=== PATIENT | male | born 1945 | race Caucasian/White ===

== ENCOUNTER 2017-10-10 06:24 | Day surgery (SDC) | payer OTHER ==
[~2017-10-10] VITALS: Ht 177.8 cm; Wt 104.3 kg
[~2017-10-10 06:24] MED LIST: ASPIR 8181 MG PO; CLOPIDOGREL75 MG PO; GABAPENTIN100 MG PO; LANTUS100 UNITS/ SUB-Q; LIPITOR40 MG PO; LISINOPRIL20 MG PO; METFORMIN HCL1000 M1 PO; METOPROLOL SUCC50 MG PO; NORVASC10 MG PO
--- NOTE | 2017-10-10 08:09 | NUR ---
10/10/17 0809 Yanira Ledesma 0802-PATIENT ARRIVED TO PACU ON 3L NC O2 SAT 95% PATIENT REACTIVE SLEEPING. RR EVEN. ABDOMEN ROUND AND SOFT. 0807-GLUCOSE [id number]
--- NOTE | 2017-10-10 08:47 | OR ---
[facility] [address], [place] [address] Signed DATE OF OPERATION: 10/10/2017 SURGEON: Ruddy Bullard MD PREOPERATIVE DIAGNOSES: 1. Personal history of multiple colonic polyps. 2. Hemorrhoids. POSTOPERATIVE DIAGNOSES: 1. A 5 mm polyps at 70 and 38 cm. 2. Moderate left-sided diverticulosis. 3. Enlarged prostate, right greater than left. PROCEDURE: Colonoscopy with hot biopsy. ESTIMATED BLOOD LOSS: None. INDICATIONS: Jose is a 72-year-old gentleman who has had three previous colonoscopies. He has had colonic polyps removed each time. His last colonoscopy was around 2011 while living in [place]. He was told to follow up every 5 years. He tells me he also has hemorrhoids. He gives no family history of colon cancer or polyps. He had a cardiac stent placed in September 2016 and is now off the Plavix and on aspirin. Consequently, he presents for his colonoscopy. In the office, I gave him a booklet on colonoscopy and we looked at that together along with the risks including, but not limited to gas bloating, crampy abdominal pain, bleeding, perforation, requiring surgery, and missed diagnosis. We also discussed the need for IV conscious sedation. He had expressed understanding and wished to proceed. PROCEDURE NOTE: Jose was taken into our endoscopy suite and placed in the left lateral decubitus position. He was given IV sedation with 5 mg of Versed and 150 mcg of fentanyl. A digital rectal exam was performed and he does have an enlarged prostate. The right is significantly more prominent than the left. He should probably review that with his primary care provider. The adult colonoscope was then introduced and advanced under direct visualization of the camera. He did have one area in the sigmoid colon that took me just a few minutes to get around the curve, then up into the cecum itself. It took a little bit extra sedation, a little abdominal compression in order to advance the scope. Electronically Signed By: RUDDY BULLARD MD 10/10/17 0847 PATIENT NAME: JOSE GROSS OPERATIVE REPORT DATE OF : 43 REPORT #: [id number] PHYSICIAN: RUDDY BULLARD MD PCP: JERAMIE CRAWFORD REPORT IS CONFIDENTIAL AND NOT TO BE RELEASED WITHOUT AUTHORIZATION [facility] [address] [place] [id number] Signed His prep was good. The scope was slowly withdrawn. We had taken pictures throughout for photodocumentation. The above two polyps were easily removed with a hot biopsy forceps. He also has moderate left-sided diverticulosis. They are moderate in size, moderate in number, and scattered about. The rectum itself was unremarkable. Upon retroflexion of the scope, there was no additional pathology noted above the anal canal. After this, the gas was suctioned out and the colonoscope removed. Jose tolerated the procedure quite well. RECOMMENDATIONS: I will see Jose back in my office in 7 to 14 days to review his pathology results. He should review his prostate exam with his primary care provider. Ruddy Bullard MD ALB/PARVEZL /[id number] cc: SHELBIE Valencia MD Copies: JERAMIE CRAWFORD ANDREW L MD ~ Electronically Signed By: RUDDY BULLARD MD 10/10/17 0847 PATIENT NAME: JOSE GROSS OPERATIVE REPORT DATE OF : 43 REPORT #: [id number] PHYSICIAN: RUDDY BULLARD MD PCP: JERAMIE CRAWFORD REPORT IS CONFIDENTIAL AND NOT TO BE RELEASED WITHOUT AUTHORIZATION
--- NOTE | 2017-10-10 09:36 | NUR ---
LE 0915: PT IS BACK TO DS FROM PACU. SHE IS REQUESTING ICE WATER. SHE REPORTS 8/10 PAIN. MOM IS AT THE BEDSIDE. NO OTHER C/O'S AT THIS TIME. WILL REASSESS WITHIN THE HOUR. LE 0925: PT IS REQUESTING CHANELLE RENTERIA.
--- NOTE | 2017-10-10 09:46 | NUR ---
RUBI 0915: PT IS BACK TO ROOM 8 FROM PACU. HE IS HERE UNTIL HE WAKES UP A LITTLE BIT MORE. HE HAS ALREADY HAD ALL DC INSTRUCTIONS GIVEN, JUST NEEDS TO GET DRESSED AND TAKEN OUT TO RIDE.
== END 2017-10-10 10:02 | disposition home or self-care (01) ==
LOC: OPS 06:24 → DS 06:24 → OPS 06:45 → DS 06:45 → OPS 10:02
PROVIDERS: Colon & Rectal Surgery
PROC: 0DBE8ZZ Excision of Large Intestine, Via Natural or Artificial Opening Endoscopic (ICD-10-PCS; principal; 2017-10-10 06:45)
DX: Z12.11 Encounter for screening for malignant neoplasm of colon (principal); K63.5 Polyp of colon; K57.30 Diverticulosis of large intestine without perforation or abscess without bleeding; N40.0 Benign prostatic hyperplasia without lower urinary tract symptoms; F17.290 Nicotine dependence, other tobacco product, uncomplicated; Z83.71 Family history of colonic polyps; Z79.82 Long term (current) use of aspirin; Z95.5 Presence of coronary angioplasty implant and graft; Z79.4 Long term (current) use of insulin; Z79.899 Other long term (current) drug therapy; Z88.5 Allergy status to narcotic agent; Z86.010 Personal history of colon polyps; Z88.8 Allergy status to other drugs, medicaments and biological substances
CPT/HCPCS: 88305; 99153; G0500; J2250; J3010; J7120

== ENCOUNTER 2019-04-11 06:22 | Emergency (ER) | payer BC, MEDICARE ==
[~2019-04-11] VITALS: Ht 177.8 cm; Wt 104.3 kg
--- OUTSIDE RECORDS SUMMARY | ~2019-04-11 | XMS | Clinical Summary ---
Demographics + + + | Address | [address] | | | [place] [address] | + + + | Home Phone | | + + + | Preferred Language | Unknown | + + + | Marital Status | Single | + + + | Taoist Affiliation | 1028 | + + + | Race | Unknown | + + + | Ethnic Group | Unknown | + + + Author + + + | Author | [facility] | | | and [facility] | + + + | Organization | [facility] | | | and [facility] | + + + | Address | Unknown | + + + | Phone | Unavailable | + + + Support + + +---------+ + | Name | Relationship | Address | Phone | + + +---------+ + | Nathanael Mccarthy | ECON | Unknown | | + + +---------+ + | Prema Mccarthy | ECON | Unknown | | + + +---------+ + Care Team Providers + +------+ + | Care Compressor Station Engineer Name | Role | Phone | + +------+ + | Sweta Forde | PCP | | + +------+ + Allergies Not on File Medications Not on file Active Problems + + + | Problem | Noted Date | + + + | Shortness of breath | 09/01/2017 | + + + Social History + +-------+ +--------+------+ | Tobacco Use | Types | Packs/Day | Years | Date | | | | | Used | | + +-------+ +--------+------+ | Never Assessed | | | | | + +-------+ +--------+------+ + + + | Sex Assigned at | Date Recorded | | | | + + + | Not on file | | + + + + + + + | Job Start Date | Occupation | Industry | + + + + | Not on file | Not on file | Not on file | + + + + + + + + | Travel History | Travel Start | Travel End | + + + + + + | No recent travel history available. | + + Last Filed Vital Signs Not on file Plan of Treatment + + + + + | Health Maintenance | Due Date | Last Done | Comments | + + + + + | Vaccine: | | | | | Dtap/Tdap/Td (1 - | 3 | | | | Tdap) | | | | + + + + + | Vaccine: Zoster (2 | | 09/03/2009 | | | of 3) | 0 | | | + + + + + | Vaccine: | | 08/03/2012 | | | Pneumococcal 65+ | 4 | | | | Low/Medium Risk (2 | | | | | of 2 - PCV13) | | | | + + + + + | Vaccine: Influenza | | 07/25/2013, 08/03/2012 | | | (#1) | 9 | | | + + + + + Results Not on filefrom Last 3 Months Insurance + +--------+ +--------+-------+---------+--------+ | Payer | Benefi | Subscriber | Effect | Phone | Address | Type | | | t Plan | ID | justice | | | | | | / | | Dates | | | | | | Group | | | | | | + +--------+ +--------+-------+---------+--------+ | [employer] [place] | [id number] | | | | Indemn | | | CHOICE | | 018-Pr | | | ity | | | PC3 | | esent | | | | + +--------+ +--------+-------+---------+--------+ | [employer] | [place] | [id number] | | | | Indemn | | | NS | | 018-Pr | | | ity | | | ADMIN | | esent | | | | | | [place] | | | | | | | | [place] | | | | | | + +--------+ +--------+-------+---------+--------+ + +--------+ +--------+ + + | Guarantor Name | Accoun | Relation to | Date | Phone | Billing Address | | | t Type | Patient | of | | | | | | | | | | + +--------+ +--------+ + + | Dimitry Mccarthy | Person | Self [birth year] | [address] | | | al/Fam | | 1945 | [phone] | [address] [place] | | | rox | | | 6 (Home) | [phone] | + +--------+ +--------+ + + Advance Directives Patient has advance care planning documents on file. For more information, please contact:[facility] [place] [address]"
--- OUTSIDE RECORDS SUMMARY | ~2019-04-11 | XMS | Clinical Summary ---
Demographics + + + | Address | [address] | | | [place] [address] | + + + | Home Phone | | + + + | Preferred Language | Unknown | + + + | Marital Status | Single | + + + | Advent Affiliation | 1028 | + + + | Race | Unknown | + + + | Ethnic Group | Unknown | + + + Author + + + | Author | [facility] | | | and [place] | + + + | Organization | [facility] | | | and [facility] | [...] Team Providers + +------+ + | Care Executive Housekeeper Name | Role | Phone | + [...] +--------+-------+---------+--------+ | [employer] | [place] | [id number] | | | | Indemn | | | CHOICE | | 018-Pr | | | ity | | | PC3 | | esent | | | | + +--------+ +--------+-------+---------+--------+ | [employer] | [place] | [id number] | | | | Indemn | | [...] rox | | | 6 (Home) | [phone] | + +--------+ +--------+ + + Advance Directives Patient has advance care planning documents on file. For more information, please contact:[facility] [place] [address]"
[2019-04-11] MEDS ORDERED: LISINOPRIL10 MG PO (06:35)
== END 2019-04-11 06:55 | disposition home or self-care (01) ==
LOC: ED 06:22
PROC: 093K7ZZ Control Bleeding in Nasal Mucosa and Soft Tissue, Via Natural or Artificial Opening (ICD-10-PCS; principal; 2019-04-11)
DX: R04.0 Epistaxis (principal); I10 Essential (primary) hypertension; E11.9 Type 2 diabetes mellitus without complications; Z87.891 Personal history of nicotine dependence; Z88.5 Allergy status to narcotic agent; Z88.6 Allergy status to analgesic agent; Z79.899 Other long term (current) drug therapy; Z79.4 Long term (current) use of insulin; Z79.82 Long term (current) use of aspirin
CPT/HCPCS: 30901; 99283-25

== ENCOUNTER 2019-11-27 21:20 | Emergency (ER) | payer OTHER ==
[~2019-11-27] VITALS: Ht 175.3 cm; Wt 104.3 kg
[~2019-11-27 21:20] MED LIST changes: +LISINOPRIL10 MG PO
--- NOTE | 2019-11-29 11:38 | EKG ---
[facility] [address] [place] [address] Signed Sinus rhythm with 1st degree AV block Cannot rule out Anterior infarct , age undetermined Abnormal ECG No previous ECGs available Confirmed by STEVEN YIP MD ([id number]) on 11/29/2019 11:37:57 AM Electronically Signed By: STEVEN YIP MD 11/29/19 1138 PATIENT NAME: JOSE GROSS ZACKERY Electrocardiogram DATE OF : 43 PHYSICIAN: STEVEN YIP MD REPORT #: [id number] REPORT IS CONFIDENTIAL AND NOT TO BE RELEASED WITHOUT AUTHORIZATION
== END 2019-11-27 23:11 | disposition home or self-care (01) ==
LOC: ED 21:20
DX: R55 Syncope and collapse (principal); F10.129 Alcohol abuse with intoxication, unspecified; I10 Essential (primary) hypertension; E11.9 Type 2 diabetes mellitus without complications; Z88.5 Allergy status to narcotic agent; Z88.6 Allergy status to analgesic agent; Z79.899 Other long term (current) drug therapy; Z79.4 Long term (current) use of insulin; Z79.82 Long term (current) use of aspirin; Y90.7 Blood alcohol level of 200-239 mg/100 ml
CPT/HCPCS: 80053; 83735; 84484; 85025; 93005; 93010; 96360; 99284-25; G0480; J7030